=== PATIENT | male | born 1985 | race Caucasian/White ===

== ENCOUNTER 2020-08-06 13:02 | Emergency (ER) | payer BC, SELFPAY | END 2020-08-06 18:25 | disposition left against medical advice (07) | PROVIDERS: Emergency Provider Emergency Medicine; PCP Internal Medicine | DX: R13.10 Dysphagia, unspecified (principal) ==

== ENCOUNTER 2020-10-28 16:07 | Outpatient (REF) | payer BC, SELFPAY ==
--- NOTE | ~2020-10-28 | XR_ITS ---
EXAMINATION: XR ANKLE, RIGHT CLINICAL INFORMATION: Right ankle pain COMPARISON: None TECHNIQUE: AP, lateral, and mortise views of the right ankle. FINDINGS: There is no fracture or dislocation or definite ankle capsular effusion. The retrocalcaneal recess is preserved. The subtalar joint appears normal. The ankle mortise is symmetric. The malleoli are intact. No calcaneal spurring. There is small spur posterior superior talonavicular. XR/XR ankle RT min 3V IMPRESSION: No fracture, dislocation, or arthropathy.
== END 2020-10-28 16:08 | disposition home or self-care (01) ==
LOC: HO.HMGCX 16:07
PROVIDERS: PCP Internal Medicine; Visit Provider Hospitalist
DX: Z13.89 Encounter for screening for other disorder (principal)
CPT/HCPCS: 73610

== ENCOUNTER 2020-10-31 07:50 | Emergency (ER) | payer BC, SELFPAY ==
--- NOTE | ~2020-10-31 | XR_ITS ---
EXAMINATION: X-RAY RIGHT ANKLE X-RAY RIGHT FOOT CLINICAL INFORMATION: Pain COMPARISON: X-ray right ankle 10/28/2020 TECHNIQUE: Ankle 2 views. Foot 3 views. FINDINGS: Right ankle: Lateral and anterior ankle soft tissue swelling. No visible acute fracture or dislocation. Ankle mortise is maintained. Talar dome appears intact. Small dorsal navicular spurring at the talonavicular joint. Right foot: Apparent longitudinally oriented linear lucency along the medial aspect of the third proximal metatarsal base, only visualized on one view. This could be related to positioning/overlapping densities, age-indeterminate injury/fracture not excluded. No acute fracture is otherwise seen. Joint spaces are maintained. No abnormal soft tissue calcification. XR/XR ankle RT 2V IMPRESSION: 1. Findings along the medial aspect of the third proximal metatarsal base, only visualized on one view, could be related to positioning/overlapping densities, age-indeterminate injury/fracture not excluded. Clinically correlate, correlate for focal pain. 2. No acute osseous abnormality is otherwise seen.
--- NOTE | ~2020-10-31 | XR_ITS ---
EXAMINATION: X-RAY RIGHT ANKLE X-RAY RIGHT FOOT CLINICAL INFORMATION: Pain COMPARISON: X-ray right ankle 10/28/2020 TECHNIQUE: Ankle 2 views. Foot 3 views. FINDINGS: Right ankle: Lateral and anterior ankle soft tissue swelling. No visible acute fracture or dislocation. Ankle mortise is maintained. Talar dome appears intact. Small dorsal navicular spurring at the talonavicular joint. Right foot: Apparent longitudinally oriented linear lucency along the medial aspect of the third proximal metatarsal base, only visualized on one view. This could be related to positioning/overlapping densities, age-indeterminate injury/fracture not excluded. No acute fracture is otherwise seen. Joint spaces are maintained. No abnormal soft tissue calcification. XR/XR foot RT min 3V IMPRESSION: 1. Findings along the medial aspect of the third proximal metatarsal base, only visualized on one view, could be related to positioning/overlapping densities, age-indeterminate injury/fracture not excluded. Clinically correlate, correlate for focal pain. 2. No acute osseous abnormality is otherwise seen.
--- NOTE | ~2020-10-31 | XR_ITS ---
EXAMINATION: XR TIBIA AND FIBULA, RIGHT CLINICAL INFORMATION: Fall COMPARISON: None TECHNIQUE: AP and lateral views of the right tibia and fibula were obtained. FINDINGS: The bones and soft tissues are normal. No fracture. No osseous lesions. XR/XR tibia fibula RT 2V IMPRESSION: Normal right tibia and fibula.
[2020-10-31 07:59] VITALS: BP 147/54; PULSE 67; RESP 16; TEMP 36.5; O2SAT 98; BMI 20.5
--- NOTE | 2020-10-31 08:36 | ED.LOWEXIN ---
HPI - Extremity Injury (Lower) General Chief Complaint: Extremity Injury, Lower Stated Complaint: FALL R ANKLE INJ Time Seen by Provider: 10/31/20 08:36 Source: patient Mode of arrival: ambulatory Limitations: no limitations History of Present Illness HPI Narrative: neg xrays on Saturday at complaint: ankle injury Onset (ago): day(s) (4) Type of Injury: inversion Place: street/outdoors Severity: moderate Relieving factors: immobilization and rest Exacerbating factors: weight bearing, movement and palpation Context: other (stepped off of height most of weight landed on R foot) Associated symptoms: swelling and unable to bear weight Other symptoms: none Treatments prior to arrival: cold therapy, NSAIDS and other (crutches) Related Data Home Medications Medication Instructions Recorded Confirmed esomeprazole magnesium 20 mg 20 cap PO DAILY 09/27/20 09/27/20 capsule,delayed release ferrous sulfate 325 mg (65 mg 1 tab PO DAILY 09/27/20 09/27/20 iron) tablet,delayed release fluticasone propionate 110 2 puff INHALATION BID 09/27/20 09/27/20 mcg/actuation HFA aerosol inhaler (Flovent HFA) methylphenidate HCl 36 mg 36 mg PO DAILY 09/27/20 09/27/20 tablet,extended release 24 hr (Concerta) sucralfate 1 gram tablet 1 tab PO QID 09/27/20 09/27/20 Allergies Allergy/AdvReac Type Severity Reaction Status Date / Time No Known Allergies Allergy Unverified 11/12/19 15:48 [No Known Allergies*] Review of Systems Review of Systems: Constitutional : No Fever, No Chills ENT/Mouth : No Ear Pain, No Hoarseness Eyes: No Eye Pain, No Swelling, No Redness Cardiovascular : No Chest Pain, No SOB Respiratory : No Cough, No Dyspnea Gastrointestinal : No Nausea, No Vomiting, No Diarrhea Genitourinary : No Dysuria, No Hematuria Musculoskeletal : positive joint pain, No Myalgias, pos Joint Swelling Skin : No Skin lacerations, No rash Neuro : No Weakness, No Numbness PMFSH Past Medical History Attestation statement: The following information was validated with the patient. Medical History Active asthma Heartburn Normal colonoscopy Surgical History H/O endoscopy Family History Family History Father Colon cancer Diabetes Mother Hemochromatosis Hypothyroidism Social History Social History Household Members: Family Housing: House Alcohol intake: current Alcohol intake frequency: a few times a week Alcohol type: wine and hard liquor Patient Tobacco Use Status: Never used Tobacco Substance Use Type: Marijuana Advance Directives: Yes Advance Directives Information Provided: No Advance Directives on File: No Physical Exam Vital Signs: Vital Signs: Last Vital Signs Temp 97.7 F 10/31/20 07:59 Pulse 67 10/31/20 07:59 Resp 16 10/31/20 07:59 BP 147/54 H 10/31/20 07:59 Pulse Ox 98 10/31/20 07:59 Body Mass Index 20.5 Appearance: Alert. Oriented X3. No acute distress. Eyes: Pupils equal, round and reactive to light. Neck: Normal inspection CVS: Pulses normal. Respiratory: No respiratory distress. Abdomen: no signs of trauma Skin: Skin warm and dry. Normal skin color. Extremities: No lower extremity edema. R foot moderate swelling with ecchymosis on lateral aspect into calcaneal area - distal NV intact, aldrich test intact appropriate response of achilles Neuro: Oriented X 3. No motor deficit. No sensory deficit. MDM - Extremity Injury (Lower) MDM Narrative Medical decision making narrative: 35 yo male with R foot and ankle injury post fall and inversion injury he is NV intact, achilles is intact, xrays of foot and ankle ordered, also c/o prox fibula injury - xrays ordered, dispo per results and xray findings Procedures Orthopedic Splinting/Casting Injury #1: Side: right Lower Extremity Injury Location: ankle and foot Lower Extremity Immobilizer: posterior splint Other Orthopedic Equipment: crutches Discharge Plan Discharge Clinical Impression: Ankle sprain and strain, Metatarsal bone fracture Patient Disposition: Home, Self-Care Instructions: Ankle Sprain (ED), Foot Fracture in Adults (ED), R.I.C.E. Treatment (ED) Additional Instructions: return to ED for any worsening symptoms or concerns to confirm you will need MRI through your doctor or orthopedics Prescriptions: No Action sucralfate 1 gram tablet 1 tab PO QID RF: 0 ferrous sulfate 325 mg (65 mg iron) tablet,delayed release (DR/EC) 1 tab PO DAILY RF: 0 Flovent HFA 110 mcg/actuation HFA aerosol inhaler 2 puff inhalation BID RF: 0 methylphenidate HCl [Concerta] 36 mg Tablet Extended Release 24hr 36 mg PO DAILY RF: 0 esomeprazole magnesium 20 mg capsule,delayed release(DR/EC) 20 cap PO DAILY RF: 0 Referrals: Jose Fisher MD [Physician] - 1 week Stand Alone Forms: Work/School Release
== END 2020-10-31 10:15 | disposition home or self-care (01) ==
PROVIDERS: Emergency Provider Emergency Medicine; PCP Internal Medicine
DX: S93.401A Sprain of unspecified ligament of right ankle, initial encounter (principal); S96.911A Strain of unspecified muscle and tendon at ankle and foot level, right foot, initial encounter; S92.334A Nondisplaced fracture of third metatarsal bone, right foot, initial encounter for closed fracture; X50.1XXA Overexertion from prolonged static or awkward postures, initial encounter; Y93.9 Activity, unspecified; Y92.9 Unspecified place or not applicable; Y99.9 Unspecified external cause status
CPT/HCPCS: 73590; 73600; 73630; 99283; 99284

== ENCOUNTER → 2023-11-05 10:06 | Outpatient (RCR) | payer BC, SELFPAY ==
[2020-09-27 09:20] VITALS: BP 122/78; PULSE 60; RESP 14; TEMP 36.2; O2SAT 97; BMI 20.9
[2020-09-27 11:21] LABS: Baso%MD 0.8 %; Eos%MD 1.4 %; Hematocrit 42.9 % (42-52); IG%MD 0.4 %; Lymph%MD 32.3 %; Mean Corpuscular Hemoglobin 30.6 pg (27.0-33.0); Mean Corpuscular Volume 87.6 fL (80-98); Mean Platelet Volume 8.7 fL (9.4-12.4); Mono%MD 7.9 %; Neut%MD 57.2 %; Platelet Count 346 X10*3/uL (160-400); Red Cell Distribution Width 14.9 % (11.0-16.0); White Blood Count 4.9 X10*3/uL (4.8-10.8)
[2020-09-27 11:49] LABS: Alanine Aminotransferase 25 U/L (0-40); Albumin Level 4.6 g/dL (3.5-5.0); Alkaline Phosphatase 63 U/L (39-117); Anion Gap 14 (12-20); Aspartate Amino Transferase 28 U/L (5-37); Bilirubin Total 2.6 mg/dL (0.0-1.0); Blood Urea Nitrogen 14 mg/dL (9-16); Calcium 9.9 mg/dL (8.4-10.2); Carbon Dioxide 26 mmol/L (22-29); Chloride 104 mmol/L (96-108); Creatinine Clr Calc Pharmacy 82.9; Estimated Glomerular Filt Rate > 60; Glucose Random 97 mg/dL (60-115); Lactate Dehydrogenase 197 U/L (118-273); Potassium 4.7 mmol/L (3.3-5.1); Sodium 139 mmol/L (135-145); Total Protein 6.9 g/dL (6.5-8.0)
[2020-09-27 11:56] LABS: Erythrocyte Sedimentation Rate 2 MM/HR (0-15)
[2020-09-27 12:03] LABS: Band Neutrophils Percent 0 % (3-5); Basophils Abs Manual 0.1 X10*3/uL (0.0-0.3); Basophils Percent Manual 2 % (0-1); Eosinophils Absolute Manual 0.1 X10*3/UL (0.0-0.8); Eosinophils Percent Manual 2 % (0-4); Lymphocytes Absolute Manual 1.5 X10*3/uL (0.6-4.8); Lymphocytes Percent Manual 31 % (20-40); Monocytes Absolute Manual 0.3 X10*3/uL (0.0-1.2); Monocytes Percent Manual 6 % (2-11); Neutrophils Absolute Manual 2.8 X10*3/uL (2.2-7.9); Neutrophils Percent Manual 57 % (45-73)
[2020-09-27 12:05] LABS: Platelet Estimate SLIGHTLY INCREASED (NORMAL); Platelet Morphology Comment NORMAL
[2020-09-27 12:06] LABS: Large Platelet PRESENT
[2020-09-27 12:07] LABS: RBC Morphology NORMAL
[2020-09-27 12:08] LABS: HBS Num1 186.94 mIU/mL (0-7.99); HIV AB/AG Nonreactive (Nonreactive); HIV Num 1 0.05 S/CO (0.00-0.99); ~Hepatitis B Surface Antibody REACTIVE (Nonreactive)
[2020-09-27 12:13] LABS: HBc Num1 0.13 S/CO (0.00-0.79); HBsAGNum1 0.28 S/CO (0.00-0.99); Hepatitis B Core Antibody Nonreactive (Nonreactive); Hepatitis B Surface Antigen Negative (Negative); ~HepC Num1 0.23 S/CO (0.00-0.79); ~Hepatitis C Antibody Nonreactive (Nonreactive)
--- NOTE | 2020-09-27 12:25 | MHC.HEMONCMA ---
Pt was in for Hem consult for anemia. pt states he is doing well but is experiencing some fatigue. clinical summary was updated and labs were drawn. Pt will follow up in 1 month on 11/01/21 for hem follow up.
[2020-09-27 12:32] LABS: Atypical Lymph Absolute Manual 0.1 x10*3/uL; Atypical Lymphs Percent Manual 2 % (0-6); Blast Percent 0 %
[2020-09-27 12:53] LABS: Bilirubin Direct 0.7 mg/dL (0.0-0.5); Rheumatoid Factor < 15.0 IU/mL (<15.0)
--- NOTE | 2020-09-27 19:22 | P.CNHO_ITS ---
Subjective - Subjective Chief complaint: Consult for: 1. Anemia. 2. Systemic symptoms. Patient: new to practice Consult date: 09/27/20 Requesting Physician: Dr. Alfredo Hall. Primary Care Provider: Alfredo Harper MD Family Provider: Low. Medical Summary: DIAGNOSIS: HPI - Consult Narrative Narrative: Carlos Valles is a pleasant 35 year old gentleman, who has had certain episodic systemic symptoms. He tells me that last October he had a bout with fatigue, head pressure, brain fog, mild fever, night sweats, chest pain and shortness of breath. He felt neck stiffness. He had stiffness and achiness in his joints. These included knees. He felt miserable. He was given a course of antibiotics likely doxycycline. His symptoms subsided after couple of weeks. In February the same symptoms recurred. This time he had dysphagia as well and some esophageal issues. He felt enlarged neck nodes. He underwent endoscopy and colonoscopy. He was noted to have low-grade esophagitis and Valles's. He is not sure if he received antibiotics or the symptoms subsided on their own this time. In July he had the same stuff. He did not have fever nor night sweats this time . He was anemic. He was taking iron. He could not swallow for a couple days. He went to the ER but then there was a long wait so he left. He tried to keep himself hydrated. He had repeat endoscopy and dilatation. He took amoxicillin for 7 days. His symptoms gradually subsided. He feels better now. He still has the throat issues. He changes diet to soft. He is still undergoing a workup. He had barium swallow done at [facility]. He is scheduled for manometry on Saturday the . Family history: Father had colon cancer. Mom has hemochromatosis and hypothyroidism. 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 He is not . He has no children. He does not smoke. He drinks socially. He uses edible marijuana. Review of Systems - Constitutional Reports system reviewed and no additional complaints, except as documented, Denies lack of energy - Eyes Reports system reviewed and no additional complaints, except as documented - ENT Reports system reviewed and no additional complaints, except as documented - Cardiovascular Reports system reviewed and no additional complaints, except as documented - Respiratory Reports no additional respiratory complaints - Gastrointestinal Reports system reviewed and no additional complaints, except as documented - Genitourinary Genitourinary: Reports no additional male genitourinary complaints - Musculoskeletal Reports system reviewed and no additional complaints, except as documented - Integumentary/Breasts Skin/Breast: Reports no additional skin complaints - Neurologic Reports system reviewed and no additional complaints, except as documented - Psychiatric Reports system reviewed and no additional complaints, except as documented - Endocrine Reports no additional endocrine complaints - Hematologic/Lymphatic Reports system reviewed and no additional complaints, except as documented - Allergic/Immunologic Reports system reviewed and no additional complaints, except as documented PMFSH Medical History: Medical History (Last Updated 09/27/20 @ 09:25 by Azul Brito) Active asthma Heartburn Normal colonoscopy Functional capacity: independent ambulation Patient : No Family History: Family History (Last Updated 09/27/20 @ 09:26 by Azul Brito) Father Colon cancer Diabetes Mother Hemochromatosis Hypothyroidism Surgical History: Surgical History (Last Updated 09/27/20 @ 09:24 by Azul Brito) H/O endoscopy Social History: Social History (Last Updated 09/27/20 @ 09:29 by Azul Brito) Living Situation History: Household Members: Family Housing: House Alcohol History: Alcohol intake: current Alcohol History Details: Alcohol intake frequency: a few times a week Alcohol type: wine Alcohol type: hard liquor Tobacco History: Patient Tobacco Use Status: Never used Tobacco Substance Use History: Substance Use Type: Marijuana Home Medications and Allergies Home Medications Medication Instructions Recorded Confirmed Type esomeprazole magnesium 20 mg 20 cap PO DAILY 09/27/20 09/27/20 History capsule,delayed release ferrous sulfate 325 mg (65 mg 1 tab PO DAILY 09/27/20 09/27/20 History iron) tablet,delayed release fluticasone propionate 110 2 puff INHALATION BID 09/27/20 09/27/20 History mcg/actuation HFA aerosol inhaler (Flovent HFA) methylphenidate HCl 36 mg 1 tab PO QAM 09/27/20 09/27/20 History tablet,extended release 24 hr methylphenidate HCl 36 mg 36 mg PO DAILY 09/27/20 09/27/20 History tablet,extended release 24 hr (Concerta) sucralfate 1 gram tablet 1 tab PO QID 09/27/20 09/27/20 History Allergies Allergy/AdvReac Type Severity Reaction Status Date / Time No Known Allergies Allergy Unverified 11/12/19 15:48 [No Known Allergies*] Physical Exam Vital signs: Vital Signs Temp 97.2 F 09/27/20 09:20 Pulse 60 09/27/20 09:20 Resp 14 09/27/20 09:20 BP 122/78 09/27/20 09:20 Pulse Ox 97 09/27/20 09:20 Intake & Output 09/27/20 09/27/20 09/28/20 06:59 18:59 06:59 Other: Weight 62.6 kg [place] Weight in Grams 16434 Weight 62.6 kg - Constitutional Present: no acute distress - Routine HEENT Exam Head: Present: normal inspection ENT: Present: mucous membranes moist - Routine Neck Exam Present: supple. Absent: lymphadenopathy - Routine Respiratory Exam Present: CTAB - Routine Cardiovascular Exam Cardiovascular: Present: RRR, S1, S2 - Routine Abdominal Exam Present: soft, nontender - Routine Rectal Exam Patient deferred: digital exam - Routine Skin Exam Present: intact - Routine Neurological Exam Present: alert, oriented X3 - Detailed Neurological Exam: Coma Scale Eye Opening: Spontaneous (4) Verbal Response: Oriented (5) Motor Response: Obeys commands (6) [place] Coma Scale Total: 15 - Routine Psychiatric Exam Present: cooperative Hem/Onc Consult Result - Labs CBC & Chem 7: 09/27/20 10:36 09/27/20 10:36 Labs: Short CBC 09/27/20 Range/Units 10:36 WBC 4.9 (4.8-10.8) X10*3/uL Hgb 15.0 (14.0-18.0) g/dl Hct 42.9 (42-52) % Plt Count 346 (160-400) X10*3/uL BMP 09/27/20 10:36 Sodium 139 Potassium 4.7 Chloride 104 Carbon Dioxide 26 BUN 14 Creatinine 1.10 Calcium 9.9 Liver Function 09/27/20 Range/Units 10:36 Total Bilirubin 2.6 H (0.0-1.0) mg/dL Direct Bilirubin 0.7 H (0.0-0.5) mg/dL AST 28 (5-37) U/L ALT 25 (0-40) U/L Alkaline Phosphatase 63 (39-117) U/L Albumin 4.6 (3.5-5.0) g/dL Assessment and Plan (1) Anemia Status: Acute This is a pleasant 35-year-old gentleman with a history of episode systemic symptoms and anemia. He has had 3 episodes lasting 2 weeks to a month. It is not clear if these resolve spontaneously or with a course of antibiotics. DIFFERENTIAL DIAGNOSIS: 1. AN INFECTION: Viral versus bacterial versus tick bone illness. TB. 2. AUTOIMMUNE DISEASE: Can be relapsing and remitting. Rheumatoid arthritis versus SLE. 3. A HEMATOLOGICAL MALIGNANCY: Lymphoma. Less likely. PLAN: Will proceed with further evaluation. Will check blood count: His hemoglobin has normalized. Check autoimmune profile: Sed rate 2, RA <15. STEPHANIE: Negative. Check infectious disease workup: T spot: Negative, titer: Negative, babesiosis antibody: Negative. Anaplasma: Negative. Borrelia: Negative. Hepatitis B and C: Negative. Patient is keen on following up with ID. Will set up an appointment with Mami Gee. Appointment is for this Saturday. He will return in 1 month for a follow-up visit. Thank you, CC: Dr. Carver.
[2020-09-29 14:05] LABS: Anti Nuclear Antibody Screen NEGATIVE (NEGATIVE)
[2020-09-30 18:52] LABS: A. Phagocytphilium DNA,RT-PCR NOT DETECTED (NOT DETECTED); Babesia Microti DNA, RT-PCR NOT DETECTED (NOT DETECTED); Borrelia Miyamotoi,DNA RT-PCR NOT DETECTED (NOT DETECTED); E.Chaffeensis DNA RT-PCR NOT DETECTED (NOT DETECTED); Lyme(Borrelia ssp)DNA RT-PCR NOT DETECTED (NOT DETECTED); Source-Tick borne disease BLOOD
[2020-10-01 12:57] LABS: TS Negative Control Passed; TS Panel A 0; TS Panel B 0; TS Positive Control Passed; TSpotTB Negative (SeeBelow)
[2020-10-03 04:56] LABS: Babesia IgG <1:64 titer (<1:64); Babesia IgM <1:20 titer (<1:20)
[2020-10-03 22:11] LABS: Lyme Abs Screen <0.90 index
== END | disposition home or self-care (01) ==
LOC: HO.ONC 09-27 09:04
PROVIDERS: PCP Internal Medicine; Referring Provider Internal Medicine; Visit Provider Internal Medicine Medical Oncology
DX: D64.9 Anemia, unspecified (principal)
CPT/HCPCS: 36415; 80053; 82248; 83615; 85007; 85027; 85652; 86038; 86039; 86431; 86481; 86617; 86618; 86704; 86706; 86753; 86803; 87340; 87389; 87798; 87801

== ENCOUNTER 2024-07-16 08:22 | Outpatient (REF) | payer BC, SELFPAY ==
--- NOTE | ~2024-07-16 | XR_ITS ---
CLINICAL HISTORY: M25.559 - Pain in unspecified hip 1 view pelvis Comparison: DX - XR HIP RT 1V - 07/16/24 13:46 EDT Findings: No acute fracture or dislocation. Mild narrowing of the bilateral acetabulofemoral joints with no significant degenerative spurring. Multiple pelvic phleboliths. IMPRESSION: 1. No acute fracture or dislocation. 2. Mild/early arthritic changes. This document has been electronically signed by: Mercedes Pantoja DO on 07/17/2024 14:55:24
--- NOTE | ~2024-07-16 | XR_ITS ---
CLINICAL HISTORY: M25.559 - Pain in unspecified hip 1 view, right hip Comparison: DX - XR PELVIS 1-2V - 07/16/24 13:46 EDT Findings: No acute fracture or dislocation. Mild/early arthritic changes. The soft tissues are unremarkable. IMPRESSION: No acute fracture or dislocation. This document has been electronically signed by: Mercedes Pantoja DO on 07/17/2024 14:48:25
--- OUTSIDE RECORDS SUMMARY | 2024-07-16 08:31 | XMS_ITS | Continuity of Care Document ---
Author Organization [facility] Address [address] [place] [address]- Care Team Providers Care Campground Hand Name Role Phone Tye DELAROSA, Delta Brown Primary Care Physician Encounter [facility] Date(s): 06/11/24 - 07/11/24 [facility] [address] [place], [place] [address] Encounter Type: Triage Allergies, Adverse Reactions, Alerts No Known Allergies Immunizations Given and Recorded Vaccine Date Status Refusal Reason SARS-CoV-2 (COVID-19) mRNA-1273 vaccine 06/06/20 R ecorded SARS-CoV-2 (COVID-19) mRNA-1273 vaccine 05/09/20 R ecorded influenza virus vaccine, inactivated 1 02/17/13 Gi david Tet/Diphth/Acel, Pertussis (oldterm) 03/18/08 Give n Tetanus Toxoid Vaccine (oldterm) 02/25/98 Given 1Admin Note: pt declines Medications Albuterol (Eqv-Ventolin HFA) 90 mcg/inh inhalation aerosol 2 inhalation = 180 mcg, Inhalation, Every 4 hours, PRN as needed for shortness of breath or wheezing, # 6.7 Gm, 0 Refills, Maintenance, 04/28/24 10:41:00 AM EST, Aerosol, [facility], Partial fill upon patient request if the prescription is for a schedule II opioid drug., 2 inhalation Inhalation Every 4 hours,PRN:as needed for shortness of breath or wheezing, 172.7, cm, 02/20/24 16:21:00 EST, Height Start Date: 3/4/25 Status: Ordered Quantity: 6.7 Unit: g Repeat number: 1 azithromycin 250 mg oral tablet See Instructions, Take 2 tablets on day 1 and 1 tablet daily for next 4 days, # 6 tablet, 0 Refills, Maintenance, 04/28/24 5:39:00 PM EST, Tablet, [facility], Partial fill upon patient requestif the prescription is for a schedule II opioid drug., 172.7, cm, 04/28/24 16:40:00 EST, Height Start Date: 04/28/24 Status: Ordered Quantity: 6.0 Unit: tablet Repeat number: 1 Breo Ellipta 50 mcg-25 mcg/inh. inhalation powder 1 inhalation, Inhalation, Daily, at the same time every day, # 30 each, 2 Refills, Maintenance, 04/28/24 10:42:00 AM EST, Powder, [facility], Partial fill upon patient request if the prescription is for a schedule II opioid drug., 1 inhalation Inhalation Daily,Instr:at the same time every day, 172.7, cm, 02/20/24 16:21:00 EST, Height Start Date: 04/28/24 Status: Ordered Quantity: 30.0 Unit: each Repeat number: 3 Concerta 36 mg oral tablet, extended release 1 tablet = 36 mg, By Mouth, Daily in AM, # 30 tablet, 0 Refills, Maintenance, 01/08/24 3:43:00 PM EST, ER Tablet, Partial fill upon patient request if the prescription is for a schedule II opioid drug. Start Date: 01/08/24 Status: Ordered Quantity: 30.0 Unit: tablet Repeat number: 1 diclofenac 1% topical gel = 2 Gm, Topically, 4 times a day, bilateral hips, # 100 Gm, 1 Refills, Maintenance, 01/08/24 4:35:00 PM EST, Gel, [facility], Partial fill upon patient request if the prescription is for a schedule II opioid drug., 172.7, cm, 01/08/24 15:38:00 EST, Height, 60, kg, 01/19/22 14:35:00 EST, Dry Weight Start Date: 01/08/24 Stop Date: 01/28/24 Status: Ordered Quantity: 100.0 Unit: g Repeat number: 2 doxycycline hyclate 100 mg oral enteric coated tablet 2 tablet = 200 mg, By Mouth, Once, # 2 tablet, 0 Refills, Soft Stop, 01/07/24 12:25:00 PM EST, [facility], Partial fill upon patient request if the prescription is for a schedule II opioid drug., 172.7, cm, 12/24/23 16:19:00 EDT, Height, 60, kg, 01/19/22 14:35:00 EST, Dry Weight Start Date: 01/07/24 Status: Ordered Quantity: 2.0 Unit: tablet Repeat number: 1 Esomeprazole 1, tablet, By Mouth, 2 times a day, Nexium, Refills 0, Maintenance, 06/18/23 3:11:00 PM EDT, Partialfill upon patient request if the prescription is for a schedule II opioid drug. Start Date: 06/18/23 Status: Ordered Repeat number: 1 methylphenidate 10 mg oral tablet 10 mg, 1, tablet, By Mouth, Daily, # 30 tablet, Refills 0, Tot. Refills 0, Maintenance, 06/18/24 2:21:00 PM EDT, Print Requisition, Partial fill upon patient request if the prescription is for a schedule II opioid drug. Start Date: 06/18/24 Status: Ordered Quantity: 30.0 Unit: tablet Repeat number: 1 methylphenidate 36 mg oral tablet, extended release 1 tablet = 36 mg, By Mouth, Daily in AM, Dx: ADD, F90.9, # 30 tablet, 0 Refills, Maintenance, 05/22/24 1:37:00 PM EDT, Partial fill upon patient request if the prescription is for a schedule II opioiddrug. Start Date: 05/22/24 Stop Date: 06/21/24 Status: Ordered Quantity: 30.0 Unit: tablet Repeat number: 1 methylphenidate 36 mg oral tablet, extended release 1 tablet = 36 mg, By Mouth, Daily in AM, for 30 days, Dx: ADD, F90.9, # 30 tablet, 0 Refills, Hard Stop 07/21/24 1:37:00 PM EDT, 06/21/24 1:37:00 PM EDT, Partial fill upon patient request if the prescription is for a schedule II opioid drug. Start Date: 06/21/24 Stop Date: 07/21/24 Status: Ordered Quantity: 30.0 Unit: tablet Repeat number: 1 methylphenidate 36 mg oral tablet, extended release 1 tablet = 36 mg, By Mouth, Daily in AM, for 30 days, Dx: ADD, F90.9, # 30 tablet, 0 Refills, Hard Stop 08/20/24 1:37:00 PM EDT, 07/21/24 1:37:00 PM EDT, Partial fill upon patient request if the prescription is for a schedule II opioid drug. Start Date: 07/21/24 Stop Date: 08/20/24 Status: Ordered Quantity: 30.0 Unit: tablet Repeat number: 1 methylphenidate 36 mg oral tablet, extended release 1 tablet = 36 mg, By Mouth, Daily in AM, for 30 days, Dx: ADD, F90.9, # 30 tablet, 0 Refills, Hard Stop 09/19/24 1:37:00 PM EDT, 08/20/24 1:37:00 PM EDT, Partial fill upon patient request if the prescription is for a schedule II opioid drug. Start Date: 08/20/24 Stop Date: 09/19/24 Status: Ordered Quantity: 30.0 Unit: tablet Repeat number: 1 Problem List Condition Confirmation Course Effective Dates Status Health Status Informant AP (abdominal pain) ? inguinal hernia;left refer surgery Confirmed 01/01/22 Active Acute sinusitis Confirmed Active Ankle pain, right chronic post trauma Confirmed Active Barretts esophagusn 2019 neg bx 2020 Confirmed Active Chronic back pain 1 Confirmed Active Iron disorder high Confirmed 01/02/22 Active ADD (attention deficit disorder) Confirmed Active Family history of colon cancer in father/colonoscopy 2020 Confirmed Active Foot fracture Confirmed Active Chronic GERD egd 2020 Esophagitis Confirmed 03/30/20 Active Chronic left hip pain Confirmed 05/01/21 Active Impaired fasting glucose Confirmed 05/28/20 Active Asthma, mild persistent Confirmed Active Indirect hyperbilirubinemia Confirmed Active 1Normal lumbar spine normal SI joint on x-ray normal CBC sedimentation rate CRP Social History Social History Type Response Smoking Status Never smoker entered on: 12/26/17 Sex Sex Representation Male (finding) Patient Care team information Care Team Personnel Name: Delta Gamble MD Position: S Physician - Primary Care Member Role: PCP [address]: [address] [place] [id number] Telecom: Care Team Related Persons Name: CHRIS SALAZAR Insurance Providers Guarantor name: RUTH ANN SALAZAR [facility] Plan Information #: 1 Payer: HMO [employer] Member Number: NA Policy Number: NA Group Number: NA
--- OUTSIDE RECORDS SUMMARY | 2024-07-16 08:31 | XMS_ITS | Encounter Summary ---
Author Organization [facility] Address [address] [place] [address] Phone Care Team Providers Care Aircraft Pneudraulics Repairer Name Role Phone Michael Tian MD Primary Care Provider Thang joyce Encounter Details Date Type Department Care Team (Late st Contact Info) Description 10/11/2016 Conversion Encounter [facility] - [address] [address] Social History Tobacco Use Types Packs/Day Years Used Date Smoking Tobacco: Never Assessed Sex and Gender Information Value Date Recorded Sex Assigned at Not on file Legal Sex Male 4:13 PM EDT Gender Identity Not on file Sexual Orientation Not on file documented as of this encounter Plan of Treatment Not on file documented as of this encounter Visit Diagnoses Not on filedocumented in this encounter Care Teams Aircraft Pneudraulics Repairer Relationship Specialty Start Date End Date Michael Tian MD PCP - General 10/05/16 04/12/22 documented as of this encounter
--- OUTSIDE RECORDS SUMMARY | 2024-07-16 08:31 | XMS_ITS | Encounter Summary ---
Author Organization [facility] Address [address] [place] [id number] Phone Care Team Providers Care Electro Winning Operator Name Role Phone Michael Tian MD Primary Care Provider Thang joyce Encounter Details Date Type Department Care Team (Late st Contact Info) Description 08/17/2011 Documentation [facility] Family Medicine [address] [place] [address] Family Medicine, Physician [address] [place] [address] Social History Tobacco Use Types Packs/Day Years [...] on filedocumented in this encounter Care Teams Electro Winning Operator Relationship Specialty Start Date End Date Michael Tian MD PCP - General 10/05/16 04/12/22 documented as of this encounter
--- OUTSIDE RECORDS SUMMARY | 2024-07-16 08:31 | XMS_ITS | Clinical Summary ---
Author Organization [facility] Address [address] [place] [id number] Phone Care Team Providers Care Scouring Machine Operator Name Role Phone Unavailable Primary Care Provider Unavailabl e Immunizations Immunization Administration Dates Next Due DTP 07/24/1990, 7,03/05/1986,12/25,1985 Hep B, ped/adol 03/26/1997,10/22/1996,09/22/1996 IPV 07/24/1990, 7,1985,10/22 MMR 09/22/1996,11/19/1986 Meningococcal Polysaccharide 10/05/2003 Td (adult) (Tenivac), 5 Lf t etanus toxoid, PF, adsorbed 10/06/1998,08/10/1996 Social History Tobacco Use Types Packs/Day Years Used Date Smoking Tobacco: Never Assessed Sex and Gender Information Value Date Recorded Sex Assigned at Not on file Legal Sex Male 4:13 PM EDT Gender Identity Not on file Sexual Orientation Not on file Plan of Treatment Health Maintenance Due Date Last Done Comments Varicella Vaccines (1 of 2 - 13+ 2-dose series) 1998 DTaP,Tdap,and Td Vaccines (6 - Tdap) 10/07/1998 10/06/1998, 08/10/1996, 07/24/1990, Additional history exists Influenza Vaccines (#1) 2023 COVID-19 Vaccine ( season) 2023 IPV Vaccines Completed 07/24/1990, 01/26, 1985, Additional history exists MMR Vaccines Completed 09/22/1996, 11/19/1986 Hepatitis B Vaccines Completed 03/26/1997, 10/22/1996, 09/22/1996 HIB Vaccines Aged Out No longer eligi ble based on patient's age to complete this topic HPV Vaccines Aged Out No longer eligi ble based on patient's age to complete this topic Hepatitis A Vaccines Aged Out No long er eligible based on patient's age to complete this topic Men B Vaccine Aged Out No longer elig ible based on patient's age to complete this topic Meningococcal Vaccine Aged Out No qiana blessing eligible based on patient's age to complete this topic Pneumococcal Vaccine Aged Out No long er eligible based on patient's age to complete this topic
--- OUTSIDE RECORDS SUMMARY | 2024-07-16 08:31 | XMS_ITS | Continuity of Care Document ---
[facility] Address [address] [place] [address]- Care Team Providers Care Light Armored Vehicle Officer Name Role Phone Tye DELAROSA, Delta Brown Primary Care Physician Encounter [facility] Date(s): 06/15/24 - 07/15/24 [facility] [address] [place] [address]- Encounter Type: Triage Allergies, Adverse Reactions, Alerts [...] Height Start Date: 04/28/24 Status: Ordered Quantity: 6.7 Unit: g Repeat [...] - Primary Care Member Role: PCP Address: [address] [place] [id number]- Telecom: Care Team Related Persons Name: CHRIS SALAZAR Insurance Providers Guarantor name: RUTH ANN SALAZAR [facility] Plan Information #: 1 Payer: HMO DRE IN NETWORK Member Number: NA Policy Number: NA Group Number: NA
--- OUTSIDE RECORDS SUMMARY | 2024-07-16 08:31 | XMS_ITS | Continuity of Care Document ---
Author Organization [facility] Address [address] [place] [address]- Care Team Providers Care Manager Planning Name Role Phone Tye DELAROSA, Delta Brown Primary Care Physician Encounter [facility] Date(s): 06/14/24 - 07/14/24 [facility] [address], [place] [address] Encounter Type: Triage Allergies, Adverse [...] - Primary Care Member Role: PCP Address: [address] [place] [phone]- Telecom: Care Team Related Persons Name: CHRIS SALAZAR Insurance Providers Guarantor name: RUTH ANN SALAZAR [facility] Plan Information #: 1 Payer: HMO BLUE IN NETWORK Member Number: NA Policy Number: NA Group Number: NA
== END 2024-07-16 08:23 | disposition home or self-care (01) ==
LOC: HO.HOSX 08:22
PROVIDERS: Visit Provider Orthopaedic Surgery
DX: M25.559 Pain in unspecified hip (principal)
CPT/HCPCS: 72170; 73501

== ENCOUNTER 2024-07-16 13:41 | Outpatient (AMB) | payer BC, SELFPAY ==
--- NOTE | 2024-07-16 13:53 | MHC.OFFVIS ---
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 Patient reports that he had onset of pain in October of 2023 and has gradually increased over time. He is a runner. He was recently seen with his PCP who ordered Bilateral Hip MRI. Her reports that he is having pain over the lateral aspect of bilateral hips, due to his pain he is unable to run. He reports some numbness in the feet he unable to attribute this to anything inparticular. He is taking Advil at all times out of precaution of inflammation. 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 This was not resolving and he asked to get an MRI. An MRI was obtained and there was a abnormality in the right femoral head and neck that was concerning to the radiologist. He subsequently saw several physicians and comes in today to discuss. He denies pain. He says there is discomfort with activity in the and around the posterior aspect of the greater trochanter. He has no groin pain. He feels like he could run but was told he has a stress fracture and so was concerned that he would do irreparable damage by running. He denies recent injury. [facility] Medical History (Updated 07/18/24 @ 08:59 by Jose Fisher MD) Normal colonoscopy Heartburn Active asthma Surgical History (Updated 07/16/24 @ 14:11 by Paty Keys CMA) Hx of tonsillectomy H/O endoscopy Family History Father Colon cancer Diabetes Mother Hemochromatosis Hypothyroidism Social History Household Members: Family Housing: House Alcohol intake: current Alcohol intake frequency: a few times a week Alcohol type: wine and hard liquor Patient Tobacco Use Status: Never used Tobacco Substance Use Type: Marijuana Physical Exam Vital Signs: BMI result Body Mass Index 19.8 Const General: cooperative, healthy appearing, no acute distress, well developed and alert HEENT Head: Yes normal to inspection, Yes normocephalic and Yes atraumatic Mouth: moist mucous membranes Eyes General: appearance normal, both eyes and all related structures EOM: EOMs intact bilaterally Chest Other: no audible wheezing. Resp Other: No audible wheezing Effort & Inspection: normal respiratory effort Cardio Other: Radial pulse palpable with no rythmic abnormalities Back/Spine/Pelvis Cervical Spine: normal cervical lordosis Skin General skin exam: no rashes or lesions noted Neuro General: no focal motor deficits Extrem Other: Normal gait with no antalgia Full range motion bilateral hips Negative impingement Negative Stinchfield Negative straight leg raise Negative Verenice No pain with resisted hip flexion/abduction/adduction The only positive finding is mild discomfort with deep palpation over the abductor insertion of the greater trochanter right greater than left. Psych Appearance: grossly normal and well kempt Mental Status: mental status grossly normal Speech and movement: Normal speech and movement present Affect: normal affect Attitude: cooperative Results Reviewed Results Reviewed: I personally reviewed relevant radiographs. There is a small cyst of the head and neck junction of the right hip which can be seen in the setting of impingement. I personally reviewed the MR images. There is mild bone marrow edema in the lateral aspect of the right proximal femoral neck which may represent early stress related changes. Assessment & Plan Assessment & Plan (1) Hip abductor tendonitis: Code(s): M76.899 - Other specified enthesopathies of unspecified lower limb, excluding foot Category: Medical Plan: I had a long discussion with Carlos regarding is MRI findings. It appears that there is a small cyst at the femoral head neck junction. This is consistent with his radiographs as the small subchondral cyst can be seen here as well. I can not exclude a stress reaction but it is atypical and unlikely. 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 I think I am obligated to repeat the MRI in 3 months given the radiologist MRI reading but I suspect this will be of little value. In the meantime we discussed treatment options. His lack of symptoms is reassuring. He does have a superior labral tear, subchondral cyst and generalized tendinopathy about the hip. These are most consistent with impingement. Typically a stress reaction at this level would demonstrate more significant uptake and inflammation and bony edema. He is asymptomatic. I think it is reasonable for him to increase his activities as tolerated. I would avoid sprinting, cutting, extended running, aggressive pounding. He does engage in a lot of stop-start running and cutting activities. I think gentle resistance training and in line jogging would be a more appropriate place to start. I explained this to him. He expressed understanding. I will order a repeat MRI with contrast in October and see him back afterward. At that point we may discuss more his underlying impingement but I would get the MRI 1st. If anything changes prior to that he will return to see me. Orders: Orders XR pelvis 1-2V 07/16/24 M25.559 - Pain in unspecified hip XR hip RT 1V 07/16/24 M25.559 - Pain in unspecified hip Coding Level of Care Code New Pt Level 4 (35077) Diagnoses Hip abductor tendonitis M76.899
[2024-07-16 14:06] VITALS: BMI 19.8
== END 2024-07-16 14:44 | disposition home or self-care (01) ==
LOC: HO.HOS 13:42
PROVIDERS: PCP Family Medicine; Visit Provider Orthopaedic Surgery
DX: M76.892 Other specified enthesopathies of left lower limb, excluding foot (principal); M85.652 Other cyst of bone, left thigh
CPT/HCPCS: 99204

== ENCOUNTER → 2024-07-16 13:46 | Outpatient (BNV) | payer BC, SELFPAY | PROVIDERS: Visit Provider Radiology Diagnostic Radiology | DX: M25.551 Pain in right hip (principal); M16.0 Bilateral primary osteoarthritis of hip | CPT/HCPCS: 72170; 73501 ==